=== PATIENT | female | born 1995 | race American Indian/Alaskan Native ===

== ENCOUNTER 2018-09-18 09:50 | Emergency (ER) | payer SELFPAY ==
--- NOTE | 2018-09-18 12:04 | ED Physician Documentation ---
History of Present Illness - Stated complaint Stated Complaint: SORE ON RIGHT BUTTOCKS/FEMALE - Chief complaint Chief Complaint: Wound - History obtained from History obtained from: Patient - Additonal information Additional information: Patient is a previously healthy 22-year-old female presenting with several days of likely abscess to right buttock. Patient reports that initially it started as a pimple and has drained on its own. Patient does report significant pain and surrounding redness. Patient denies fever, abdominal pain, vomiting, changes in urination or stool related to this issue. Patient also denies or other vaginal complaints. However, later on she raises concern for chlamydia without known exposure. Patient denies symptoms such as vaginal pain or abnormal bleeding, lesions, or urinary changes prior to the abscess.No known worsening or improving factors noted. 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: None : None HEENT: None Psych: None Musculoskeletal: None Derm: None - Past Surgical History Past Surgical History: No - Present Medications Home Medications: Ambulatory Orders Medication Instructions Recorded Confirmed Cephalexin [Keflex] 500 mg PO Q6H #28 capsule 09/18/18 Sulfamethox/Trimeth 800/160 1 each PO BID #14 tablet 09/18/18 [Bactrim Ds 800/160] - Allergies Allergies/Adverse Reactions: Allergies Allergy/AdvReac Type Severity Reaction Status Date / Time No Known Drug Allergies Allergy Verified 09/18/18 10:09 - Social History Does the pt smoke?: Yes Smoking Status: Current every day smoker Does the pt drink ETOH?: No Does the pt have substance abuse?: No - Immunizations Immunizations are current?: Yes - POLST Patient has POLST: No PD ED PE NORMAL - General General: Alert and oriented X 3, No acute distress, Well developed/nourished - HEENT HEENT: Atraumatic - Cardiac Cardiac: RRR, No murmur - Respiratory Respiratory: No respiratory distress, Clear bilaterally - Abdomen Abdomen: Normal bowel sounds, Soft, Non tender, Non distended - Derm Derm: Normal color, Warm and dry, No rash, Other (Only skin findings include less than quarter sized abscess without fluctuance, but significant induration surrounding it over mid right buttock. Large area of erythema surrounding abscess. Again, no fluctuance or other complications noted. No extension into mucosa or perineal area.No extension into gluteal cleft.) Results - Vitals Vitals: Vital Signs - 24 hr 09/18/18 09/18/18 10:07 13:04 Temperature 35.6 C L Heart Rate 107 H 90 Respiratory 14 18 Rate Blood Pressure 100/69 137/78 H O2 Saturation 97 99 Oxygen O2 Source Room air - Labs Labs: Laboratory Tests 09/18/18 12:35 Urine Color YELLOW Urine Clarity CLEAR Urine pH 7.5 Ur Specific [place] 1.010 Urine Protein NEGATIVE Urine Glucose (UA) NEGATIVE Urine Ketones NEGATIVE Urine Occult Blood TRACE-LYSE Urine Nitrite NEGATIVE Urine Bilirubin NEGATIVE Urine Urobilinogen 0.2 (NORMAL) Ur Leukocyte Esterase NEGATIVE Ur Microscopic Review NOT INDICATED Urine Culture Comments NOT INDICATED Urine HCG, Qual NEGATIVE PD MEDICAL DECISION MAKING - ED course Complexity details: considered differential, d/w patient ED course: Patient presenting with uncomplicated abscess to right buttock. Wound has already drained on its own and with palpation, there are no fluctuant masses that would be amenable to further drainage. There is surrounding erythema, but not extending intoPerineal area, but remaining only on buttock. Do not have suspicion for other complicated issues with this abscess, as well as do not find evidence of systemic illness present. Patient does raise vague concern for chlamydia, although she denies particular known exposures or symptoms that raise high suspicion for such. Patient also denies symptoms that would raise high suspicion for UTI. However, obtained urine sample to further evaluate. Urinalysis negative for infection. testing also negative. Notified patient that if results returned positive for STD, she would be contacted and advised to receive appropriate treatment with antibiotics. Otherwise, provided prescriptions for antibiotics to address abscess, as well as discussed other supportive cares for this, return precautions and follow-up. Work note provided. Patient voiced understanding and is comfortable with discharge plan. Departure - Departure Disposition: 01 Home, Self Care Clinical Impression: Abscess Condition: Good Instructions: ED [place] Anal Abscess Abx Only Follow-Up: your,doctor [Other] - Within 3 Days Prescriptions: Cephalexin [Keflex] 500 mg PO Q6H #28 capsule Sulfamethox/Trimeth 800/160 [Bactrim Ds 800/160] 1 each PO BID #14 tablet Comments: Please take antibiotics as prescribed to treat abscess. Recommend taking with food to avoid upset stomach. Please keep area of abscess clean and dry using running water and soap only to clean. Also recommend loose clothing. Please follow with primary care physician in the next 2-3 days and return to ED sooner if experience worsening symptoms including spreading of redness, worsening pain, fever, or other concerns. Forms: Activity restrictions Discharge Date/Time: 09/18/18 13:04
[2018-09-18 12:54] LABS: BILIRUBIN,URINE NEGATIVE (NEGATIVE); GLUCOSE, URINE (UA) NEGATIVE (NEGATIVE); KETONES,URINE (UA) NEGATIVE (NEGATIVE); LEUKOCYTE ESTERASE, URINE NEGATIVE (NEGATIVE); NITRITE,URINE NEGATIVE (NEGATIVE); OCCULT BLOOD,URINE TRACE-LYSE (NEGATIVE); PH,URINE 7.5 PH (5.0-7.5); PROTEIN,URINE NEGATIVE (NEGATIVE); UROBILINOGEN,URINE 0.2 (NORMAL) E.U./dL (NORMAL)
[2018-09-18 12:55] LABS: CLARITY,URINE CLEAR (CLEAR); HCG UR QUAL NEGATIVE
[2018-09-18 13:05] VITALS: BP 137/78
== END 2018-09-18 13:04 | disposition home or self-care (01) ==
LOC: ED 09:50
DX: L02.31 Cutaneous abscess of buttock (principal); F17.200 Nicotine dependence, unspecified, uncomplicated
CPT/HCPCS: 81001; 81003; 81025; 87086; 87491; 87591; 99283

== ENCOUNTER 2018-12-21 19:17 | Emergency (ER) | payer OTHER ==
[2018-12-21] MEDS ORDERED: LIDOCAINE 1%-EPI 1:100000 20 ML MDV ONE (19:33)
[2018-12-21] MEDS ORDERED: cephALEXin 250 MG CAPSULE PO STA (19:38)
--- NOTE | 2018-12-21 19:43 | ED Physician Documentation ---
PD HPI UPPER EXT INJURY - Stated complaint Stated Complaint: RT HAND LAC - Chief complaint Chief Complaint: Laceration - History obtained from History obtained from: Patient - History of Present Illness Location: Right (Right-handed young woman who is up-to-date on tetanus punched a glass table at home just prior to arrival and has multiple lacerations about the dorsum of the right hand and forearm.) Where injury occurred: Home Timing - onset: Today Review of Systems Ten Systems: 10 systems reviewed and negative Constitutional: reports: Reviewed and negative Cardiac: reports: Reviewed and negative Respiratory: reports: Reviewed and negative PD PAST MEDICAL HISTORY - Past Medical History Cardiovascular: None Respiratory: None Neuro: None Endocrine/Autoimmune: None GI: None 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: 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 : None HEENT: None Psych: None Musculoskeletal: None Derm: None - Past Surgical History Past Surgical History: No - Present Medications Home Medications: Ambulatory Orders Medication Instructions Recorded Confirmed Cephalexin [Keflex] 500 mg PO Q6H #28 capsule 09/18/18 Sulfamethox/Trimeth 800/160 1 each PO BID #14 tablet 09/18/18 [Bactrim Ds 800/160] Cephalexin [Keflex] 500 mg PO Q6H #28 capsule 12/21/18 Hydrocodone/Acetaminophen 1 - 2 each PO Q6H PRN #10 tablet 12/21/18 [Hydrocodon-Acetaminophen 5-325] - Allergies Allergies/Adverse Reactions: Allergies Allergy/AdvReac Type Severity Reaction Status Date / Time No Known Drug Allergies Allergy Verified 09/18/18 10:09 - Social History Does the pt smoke?: Yes Smoking Status: Current every day smoker Does the pt drink ETOH?: No Does the pt have substance abuse?: No - Immunizations Immunizations are current?: Yes - POLST Patient has POLST: No PD ED PE NORMAL - Vitals Vital signs reviewed: Yes - General General: Alert and oriented X 3, No acute distress - Extremities Extremities: Other (There is a 2 cm laceration over the mid third and fourth metacarpals, dorsally. And a smaller laceration over the fifth metacarpal. The larger one has active venous oozing and was addressed initially. She has no extensor tendon strength of the third and fourth digits with apparently complete tendon lacerations of those digits. She has normal cap refill and sensation at the tips of all the digits. There is also a 1 cm laceration on the ulnar forearm, mid to distal forearm.) - Neuro Neuro: Alert and oriented X 3, Normal speech Results - Vitals Vitals: Vital Signs - 24 hr 12/21/18 12/21/18 19:20 19:45 Temperature 37.3 C Heart Rate 114 H 93 Respiratory 20 16 Rate Blood Pressure 122/74 90/56 L O2 Saturation 98 99 Oxygen O2 Source Room air Procedures - Laceration (location) R hand/forearm Length in cm: 4 Wound type: Linear (3 wounds as described, total 4cm) Tendon involvement: Tendon Injury Anesthesia: Lidocaine 1% with epi Wound Preparation: Hibiclens, Irrigated copiously NS Skin layer closure: Other (All the wounds were closed with interrupted 4-0 nylon in simple interrupted fashion after irrigation.) Complexity: Simple - Splint (location) R hand Splint applied by: Physician Type of splint: Fiberglass, Short arm, Volar cock up Other: Patient tolerated well, No complications, Neurovascular intact PD MEDICAL DECISION MAKING - Consults Consults: Consulted (name) (Gabe Montague, adjunct communications faculty member ortho RE tendon lacs, they will see her in office.) Departure - Departure Disposition: 01 Home, Self Care Clinical Impression: Hand laceration involving tendon Qualifiers: Encounter type: initial encounter Laterality: right Qualified Code(s): S61.411A - Laceration without foreign body of right hand, initial encounter; S66.921A - Laceration of unspecified muscle, fascia and tendon at wrist and hand level, right hand, initial encounter Forearm laceration Qualifiers: Encounter type: initial encounter Laterality: right Qualified Code(s): S51.811A - Laceration without foreign body of right forearm, initial encounter Condition: Good Record reviewed to determine appropriate education?: Yes Health Concerns: Multiple hand lacerations from broken glass, also has tendon lacerations of the extensor tendons of the third and fourth digits of the right hand. Plan of Treatment: She is up-to-date on tetanus. The wounds were closed with suture. She is placed into a splint which she should keep on and dry. She needs to contact the orthopedics office on Tuesday to arrange for definitive repair of the extensor tendon lacerations. Care Goals: tendon repair Assessment: as above Instructions: ED Laceration Hand Follow-Up: [facility] [Provider Group] - 12/25/18 Prescriptions: Cephalexin [Keflex] 500 mg PO Q6H #28 capsule Hydrocodone/Acetaminophen [Hydrocodon-Acetaminophen 5-325] 1 - 2 each PO Q6H PRN #10 tablet PRN Reason: pain
[2018-12-21 19:52] VITALS: BP 90/56
[2018-12-21] MEDS ORDERED: CEPHALEXIN 250 MG Prepack 8 CAP BOTTLE PO STA (19:56)
[2018-12-21] MEDS ORDERED: HYDROcod/ACET 5/325 Prepack 4 PO STA (19:59)
--- NOTE | 2018-12-21 20:31 | XRAY Report ---
Reason: hand inj, R/O glass FB Procedure Date: 12/21/2018 Accession Number: [id number] / [id number] Procedure: XR - Hand 3 View RT CPT Code: FULL RESULT: EXAM: RIGHT HAND RADIOGRAPHY EXAM DATE: 12/21/2018 08:11 PM. CLINICAL HISTORY: Pain COMPARISON: None. TECHNIQUE: 3 views. FINDINGS: Bones: No fracture or focal bony lesion. Joints: No evidence of dislocation. Soft Tissues: There is dorsal soft tissue swelling. There is no evidence of radiopaque foreign body. IMPRESSION: No evidence of fracture or radiopaque foreign body. RADIA
== END 2018-12-21 20:25 | disposition home or self-care (01) ==
LOC: ED 19:17
DX: S51.811A Laceration without foreign body of right forearm, initial encounter (principal); S61.216A Laceration without foreign body of right little finger without damage to nail, initial encounter; S66.821A Laceration of other specified muscles, fascia and tendons at wrist and hand level, right hand, initial encounter; W25.XXXA Contact with sharp glass, initial encounter; Y92.009 Unspecified place in unspecified non-institutional (private) residence as the place of occurrence of the external cause; F17.200 Nicotine dependence, unspecified, uncomplicated
CPT/HCPCS: 12002; 29125; 73130; 99283; A9270

== ENCOUNTER 2021-10-29 17:28 | Emergency (ER) | payer SELFPAY ==
--- NOTE | 2021-10-29 17:37 | ED Physician Documentation ---
PD HPI FEMALE - Stated complaint Stated Complaint: FEMALE - Chief complaint Chief Complaint: UTI - History obtained from History obtained from: Patient - History of Present Illness Timing - onset: How many days ago (few) Timing - duration: Days (few) Timing - details: Gradual onset, Still present (increasing) Associated symptoms: Dysuria, Urinary frequency. No: Fever, Vaginal bleeding, Vaginal discharge Contributing factors: Sexually active. No: , Exposed to STD Similar symptoms before: Diagnosis (UTIs when teenager. Has had a prior BV couple years ago, and once with chlamydia. She says feels like UTI.) Recently seen: Not recently seen Review of Systems Constitutional: denies: Fever, Chills Nose: denies: Rhinorrhea / runny nose, Congestion Throat: denies: Sore throat Respiratory: denies: Cough GI: denies: Abdominal Pain, Nausea, Vomiting : reports: Dysuria. 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 : None HEENT: None Psych: None Musculoskeletal: None Derm: None - Past Surgical History Past Surgical History: No - Present Medications Home Medications: Ambulatory Orders Medication Instructions Recorded Confirmed cephALEXin [Keflex] 500 mg PO TID 5 Days #15 cap 10/29/21 - Allergies Allergies/Adverse Reactions: Allergies Allergy/AdvReac Type Severity Reaction Status Date / Time No Known Drug Allergies Allergy Verified 09/18/18 10:09 - Social History Does the pt smoke?: Yes Smoking Status: Current every day smoker Does the pt drink ETOH?: No Does the pt have substance abuse?: No - Immunizations Immunizations are current?: Yes - POLST Patient has POLST: No PD ED PE NORMAL - Vitals Vital signs reviewed: Yes - General General: Alert and oriented X 3, No acute distress, Well developed/nourished - Abdomen Abdomen: Soft, Non tender - Female Female : Deferred (allowed to self-obtain the vaginal swabs. ) - Rectal Rectal: Deferred - Back Back: No CVA TTP - Derm Derm: Normal color Results - Vitals Vitals: Vital Signs - 24 hr 10/29/21 10/29/21 17:32 18:20 Temperature 36.5 C 3.2 C L Heart Rate 78 72 Respiratory 16 16 Rate Blood Pressure 123/78 110/68 O2 Saturation 100 99 Oxygen O2 Source Room air - Labs Labs: Laboratory Tests 10/29/21 10/29/21 17:40 17:50 Urine Color YELLOW Urine Clarity CLEAR Urine pH 6.0 Ur Specific [place] >=1.030 H Urine Protein NEGATIVE Urine Glucose (UA) NEGATIVE Urine Ketones NEGATIVE Urine Occult Blood TRACE-INTA Urine Nitrite POSITIVE H Urine Bilirubin NEGATIVE Urine Urobilinogen 0.2 (NORMAL) Ur Leukocyte Esterase NEGATIVE Urine RBC 0-5 Urine WBC 6-10 H Ur Squamous Epith Cells MANY Squamous H Urine Bacteria Many H Urine Mucus Few Strands Ur Microscopic Review INDICATED Urine Culture Comments NOT INDICATED Urine HCG, Qual NEGATIVE C. glabrata (PCR) NEGATIVE C. krusei (PCR) NEGATIVE Susan species DNA POSITIVE A T. vaginalis (PCR) NEGATIVE Bact Vaginosis (PCR) POSITIVE A Departure - Departure Disposition: 01 Home, Self Care Clinical Impression: Dysuria Urinary tract infection Qualifiers: Urinary tract infection type: acute cystitis Hematuria presence: without hematuria Qualified Code(s): N30.00 - Acute cystitis without hematuria Condition: Stable Record reviewed to determine appropriate education?: Yes Instructions: ED UTI Cystitis Female Prescriptions: cephALEXin [Keflex] 500 mg PO TID 5 Days #15 cap Comments: Your urine does show signs of a bladder infection and we can treat that with cephalexin 3 times daily for 5 days. Stay well-hydrated. Tylenol if needed for pains. We also obtained tests vaginally to see if there is any signs of yeast or bacterial vaginitis. These test will result later today or tomorrow morning. We will call you if it shows any signs of other infections that needs additional treatment. We did do a urine test as well that was negative. I would anticipate improvement over the next few days. Recheck if not improving or worsening symptoms. I transmitted your prescription to [facility] in [place]. Discharge Date/Time: 10/29/21 18:22
[2021-10-29 17:53] LABS: BILIRUBIN,URINE NEGATIVE (NEGATIVE); GLUCOSE, URINE (UA) NEGATIVE (NEGATIVE); KETONES,URINE (UA) NEGATIVE (NEGATIVE); LEUKOCYTE ESTERASE, URINE NEGATIVE (NEGATIVE); NITRITE,URINE POSITIVE (NEGATIVE); OCCULT BLOOD,URINE TRACE-INTA (NEGATIVE); PROTEIN,URINE NEGATIVE (NEGATIVE); UROBILINOGEN,URINE 0.2 (NORMAL) E.U./dL (NORMAL)
[2021-10-29 17:56] LABS: CLARITY,URINE CLEAR (CLEAR); HCG UR QUAL NEGATIVE
[2021-10-29] MEDS ORDERED: cephALEXin 250 MG CAPSULE PO STA (18:00)
[2021-10-29 18:03] LABS: RBC,URINE 0-5 /HPF (0-5); SQUAMOUS EPITHELIAL CELL,UR MANY Squamous (<= Few)
[2021-10-29 18:04] LABS: BACTERIA,URINE Many /HPF (None Seen); MUCUS,URINE Few Strands
[2021-10-29 18:21] VITALS: BP 110/68
[2021-10-29 21:24] LABS: BACTERIAL VAGINOSIS DNA POSITIVE (NEGATIVE); CANDIDA GLABRATA DNA NEGATIVE (NEGATIVE); CANDIDA GROUP DNA POSITIVE (NEGATIVE); CANDIDA KRUSEI DNA NEGATIVE (NEGATIVE); TRICHOMONAS VAGINALIS DNA NEGATIVE (NEGATIVE)
[2021-10-29 23:01] LABS: CHLAMYDIA TRACHOMATIS DNA NEGATIVE (NEGATIVE); NEISSERIA GONORRHOEAE DNA NEGATIVE (NEGATIVE)
== END 2021-10-29 18:22 | disposition home or self-care (01) ==
LOC: ED 17:28
DX: N30.00 Acute cystitis without hematuria (principal); F17.200 Nicotine dependence, unspecified, uncomplicated
CPT/HCPCS: 81001; 81003; 81025; 81514; 87086; 87491; 87591; 87661; 99283

== ENCOUNTER 2023-05-02 01:00 | Emergency (ER) | payer SELFPAY ==
[2023-05-02 01:14] VITALS: BP 129/91; O2SAT 99
--- NOTE | 2023-05-02 01:15 | ED Physician Documentation ---
PD HPI FEMALE - Stated complaint Stated Complaint: FEMALE - Chief complaint Chief Complaint: Abd Pain - History obtained from History obtained from: Patient - History of Present Illness Timing - onset: How many weeks ago (3) Timing - duration: Weeks (3) Timing - details: Gradual onset, Waxing and waning (had tried monistat vaginal cream with some improvement but not resolved and symptoms back/wrose.) Associated symptoms: Pelvic pain (cramping), Vaginal discharge, Genital sore/lesion (felt some red bumps right outer labia and perioneal area.), Dysuria. No: Fever, Abdominal pain, Back pain Contributing factors: Condoms, Sexually active. No: , control, Exposed to STD (unsure - had had chlamydia remotely in the past and yeast infections. Had been treated with clearing of symptoms.) Similar symptoms before: Diagnosis (prior UTIs, yeast infections and chlamydia remote past.) Review of Systems Constitutional: denies: Fever, Chills Throat: denies: Oral lesions / sores, Sore throat GI: denies: Abdominal Pain : reports: Dysuria, Discharge (whitish initially and now white with odorous.). 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 : Other HEENT: None Psych: None Musculoskeletal: None Derm: None Other Past Medical History: UTI; Chlamydia - Past Surgical History Past Surgical History: Yes Ortho: Other - Present Medications Home Medications: Ambulatory Orders Medication Instructions Recorded Confirmed Fluconazole [Diflucan] 150 mg PO Q3D #2 tablet 05/02/23 cephALEXin [Keflex] 500 mg PO TID #15 cap 05/02/23 metroNIDAZOLE [Flagyl] 500 mg PO BID 7 Days #14 tablet 05/03/23 - Allergies Allergies/Adverse Reactions: Allergies Allergy/AdvReac Type Severity Reaction Status Date / Time No Known Drug Allergies Allergy Verified 05/02/23 01:12 - Social History Does the pt smoke?: No Smoking Status: Never smoker Does the pt drink ETOH?: No Does the pt have substance abuse?: No - Immunizations Immunizations are current?: Yes - POLST Patient has POLST: No PD ED PE NORMAL - Vitals Vital signs reviewed: Yes - General General: Alert and oriented X 3, No acute distress, Well developed/nourished - Abdomen Abdomen: Soft, Non tender - Female Female : 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 Inner labia with uniform redness and some tender. Right fourchette area with some redness of skin and fine snadpaper type bumps over few centimeters, without clustering nor vesicles. Appears irritated and not herp etic. White discharge noted vaginally. ) - Rectal Rectal: Deferred - Back Back: No CVA TTP Results - Vitals Vitals: Oxygen O2 Source Room air - Labs Labs: Laboratory Tests 05/02/23 05/02/23 05/02/23 01:17 01:17 01:17 Urine Color YELLOW Urine Clarity CLOUDY Urine pH 6.0 Ur Specific [place] 1.025 Urine Protein TRACE Urine Glucose (UA) NEGATIVE Urine Ketones NEGATIVE Urine Occult Blood LARGE H Urine Nitrite NEGATIVE Urine Bilirubin NEGATIVE Urine Urobilinogen 0.2 (NORMAL) Ur Leukocyte Esterase SMALL H Urine RBC 11-25 H Urine WBC >25 H Ur Squamous Epith Cells MOD Squamous H Urine Bacteria Few Ur Microscopic Review INDICATED Urine Culture Comments NOT INDICATED Urine HCG, Qual NEGATIVE C. glabrata (PCR) C. krusei (PCR) Susan species DNA Chlam trachomat DNA PCR NEGATIVE N.gonorrhoeae DNA (PCR) NEGATIVE T. vaginalis (PCR) NEGATIVE Bact Vaginosis (PCR) 05/02/23 01:40 Urine Color Urine Clarity Urine pH Ur Specific [place] Urine Protein Urine Glucose (UA) Urine Ketones Urine Occult Blood Urine Nitrite Urine Bilirubin Urine Urobilinogen Ur Leukocyte Esterase Urine RBC Urine WBC Ur Squamous Epith Cells Urine Bacteria Ur Microscopic Review Urine Culture Comments Urine HCG, Qual C. glabrata (PCR) NEGATIVE C. krusei (PCR) NEGATIVE Susan species DNA POSITIVE A Chlam trachomat DNA PCR N.gonorrhoeae DNA (PCR) T. vaginalis (PCR) NEGATIVE Bact Vaginosis (PCR) POSITIVE A PD Medical Decision Making - ED course Complexity details: reviewed results, considered differential (pt treated for UTI and yeat infection initially. BV and STD panels not back until next day.), d/w patient Departure - Departure Disposition: 01 Home, Self Care Clinical Impression: Dysuria, Yeast vaginitis, UTI (urinary tract infection) Condition: Stable Record reviewed to determine appropriate education?: Yes Prescriptions: Fluconazole [Diflucan] 150 mg PO Q3D #2 tablet cephALEXin [Keflex] 500 mg PO TID #15 cap Comments: At this point your urine test does look like there is signs of a bladder infection with white cells and bacteria in the urine. Your test is negative. The vaginal swabs to look for infection there have not resulted yet and commonly take a few hours. Appearance of the labia looks consistent with a yeast infection we should treat at least that way. We can call you in the morning with the results of the other tests to see if we need to add in any other treatments. I wrote prescriptions for an antifungal tablet to take every 3 days for another couple more doses. We did give you a dose this evening. This should help clear out the yeast component of the vaginitis. I also wrote for cephalexin antibiotic 3 times daily for 5 days for the bladder infection. 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 Stay well-hydrated. Recheck if not improving well over the next several days. Forms: PCP List Discharge Date/Time: 05/02/23 02:08
[2023-05-02 01:28] LABS: BILIRUBIN,URINE NEGATIVE (NEGATIVE); GLUCOSE, URINE (UA) NEGATIVE (NEGATIVE); KETONES,URINE (UA) NEGATIVE (NEGATIVE); LEUKOCYTE ESTERASE, URINE SMALL (NEGATIVE); NITRITE,URINE NEGATIVE (NEGATIVE); OCCULT BLOOD,URINE LARGE (NEGATIVE); PROTEIN,URINE TRACE mg/dL (NEGATIVE); UROBILINOGEN,URINE 0.2 (NORMAL) E.U./dL (NORMAL)
[2023-05-02 01:41] LABS: CLARITY,URINE CLOUDY (CLEAR)
[2023-05-02 01:42] LABS: BACTERIA,URINE Few /HPF (None Seen); HCG UR QUAL NEGATIVE; SQUAMOUS EPITHELIAL CELL,UR MOD Squamous (<= Few); WBC,URINE >25 /HPF (0-5)
[2023-05-02] MEDS ORDERED: cephALEXin 250 MG CAPSULE PO STA (01:55)
[2023-05-02] MEDS ORDERED: FLUCONAZOLE 100 MG TABLET PO STA (01:55)
[2023-05-02 04:37] LABS: BACTERIAL VAGINOSIS DNA POSITIVE (NEGATIVE); CANDIDA GLABRATA DNA NEGATIVE (NEGATIVE); CANDIDA GROUP DNA POSITIVE (NEGATIVE); CANDIDA KRUSEI DNA NEGATIVE (NEGATIVE); TRICHOMONAS VAGINALIS DNA NEGATIVE (NEGATIVE)
[2023-05-02 17:12] LABS: CHLAMYDIA TRACHOMATIS DNA NEGATIVE (NEGATIVE); NEISSERIA GONORRHOEAE DNA NEGATIVE (NEGATIVE); TRICHOMONAS VAGINALIS DNA NEGATIVE (NEGATIVE)
== END 2023-05-02 02:08 | disposition home or self-care (01) ==
LOC: ED 01:00
DX: N39.0 Urinary tract infection, site not specified (principal); B37.31 Acute candidiasis of vulva and vagina; N76.0 Acute vaginitis; Z87.440 Personal history of urinary (tract) infections
CPT/HCPCS: 81001; 81025; 81514; 87491; 87591; 87661; 99283; A9270; 81003; 87086

== ENCOUNTER 2023-06-18 14:53 | Emergency (ER) | payer SELFPAY ==
[2023-06-18 15:01] VITALS: BP 130/80; O2SAT 100
== END 2023-06-18 16:51 | disposition left against medical advice (07) ==
LOC: ED 14:53
DX: Z53.21 Procedure and treatment not carried out due to patient leaving prior to being seen by health care provider (principal)